=== PATIENT | female | born 1955 ===

== ENCOUNTER 2017-09-19 07:35 | Day surgery (SDC) | payer OTHER ==
[2017-09-15 21:42] VITALS: BMI 31.5
[2017-09-19] MEDS ORDERED: Lidocaine 2% Inj (20ml) ONE (08:45)
[2017-09-19] MEDS ORDERED: Iohexol 350mgl/ml 50 ML ONE (08:46)
[2017-09-19] MEDS ORDERED: HEPARIN SODIUM/NS 2,000 ML IV ONE (08:46)
[2017-09-19] MEDS ORDERED: Nitroglycerin 50mg in D5W 50 MG/250 ML BOTTLE IV ONE (09:12)
[2017-09-19] MEDS ORDERED: Verapamil 2 ML ONE (09:12)
[2017-09-19] MEDS ORDERED: Midazolam 2 MG/2 ML VIAL ONE ×2 (09:14→09:33)
[2017-09-19] MEDS ORDERED: Iohexol 350 MG/100 ML VIAL ONE (09:14)
[2017-09-19] MEDS ORDERED: DiphenhydrAMINE 50 mg/ml Inj ONE ×2 (09:23→09:33)
[2017-09-19] MEDS ORDERED: Adenosine 90 mg/30mL IV ONE (09:52)
[2017-09-19] MEDS ORDERED: Bacitracin 500 Units/gm Oint Foilpak UD TOP ONE (11:35)
[2017-09-19 15:33] VITALS: RESP 18
[2017-09-19] MEDS ORDERED: Bacitracin 500 Units/gm Oint Foilpak UD ONE (16:01)
[2017-09-19 16:47] VITALS: BP 142/77
[2017-09-19 17:38] VITALS: PULSE 72; TEMP 98.4
--- NOTE | 2017-09-19 21:13 | CARDCATH ---
PROCEDURE DATE: 09/19/2017 INDICATIONS: Ms. Fernando is a 62-year-old female with history of hypertension, dyslipidemia, who presented to [facility] with an episode of substernal chest pain and positive cardiac enzymes, positive troponins. She was, therefore, transferred from [place] to [facility] for evaluation of non-ST elevation MD. PROCEDURES PERFORMED: 1. Left heart catheterization with selective left and right coronary angiogram via left radial approach. FFR of mid LAD 50% stenosis, physiologically nonsignificant, 0.88. 2. Left ventriculogram, wrist band for hemostasis. ANGIOGRAPHIC FINDINGS: Left main large size vessel, bifurcates into LAD and left circumflex coronary artery. LAD is a large-sized vessel, in the mid segment has a hazy lesion, angiographically 50%-55% stenosis; distal LAD, mild luminal irregularities. Diagonal branch, two medium diagonal branch comes off the left anterior descending artery, which have mild luminal irregularities. Left circumflex artery runs in the AV groove, gives off the left branch. Right coronary artery is medium sized with diffuse disease, 30% to 40% stenosis with codominant circulation. Left ventricle normal ejection fraction with EDP of 15. INTERVENTION PERFORMED: FFR of the mid LAD, physiologically nonsignificant, 0.88. RECOMMENDATIONS: Guideline-directed therapy for CAD, nonobstructive CAD. Keep the patient on aspirin, statins, beta-blockers,nitrates, plus or minus DIANNE and ARB inhibitors. The patient can be transferred back to [facility] in [address] Tobin for letting me participate in the care of your patient. Kurt Nj MD
== END 2017-09-19 18:44 | disposition short-term general hospital (02) ==
LOC: CATH 07:35 → 2RNO 10:33 → CATH 18:44
PROVIDERS: ATTEND Internal Medicine Interventional Cardiology
DX: I21.4 Non-ST elevation (NSTEMI) myocardial infarction (principal); I25.10 Atherosclerotic heart disease of native coronary artery without angina pectoris; E78.5 Hyperlipidemia, unspecified; I10 Essential (primary) hypertension; E11.9 Type 2 diabetes mellitus without complications
CPT/HCPCS: 85175; 93458; 93571; 99152; 99153; C1769 ×2; C1887 ×3; C1894; J0153; J1200; J1644 ×2; J2250; J3010; J7040; Q9967 ×2